=== PATIENT | male | born 1965 | race Caucasian/White ===

== ENCOUNTER → 2020-06-11 15:04 | Outpatient (BNVA) | payer BC, SELFPAY | PROVIDERS: Family Provider Nurse Practitioner Family; PCP Nurse Practitioner Family; Visit Provider Emergency Medicine | DX: Z11.59 Encounter for screening for other viral diseases (principal) | CPT/HCPCS: 87635 ==

== ENCOUNTER → 2021-07-18 13:25 | Outpatient (BNVA) | payer OTHER, SELFPAY | PROVIDERS: Family Provider Nurse Practitioner Family; PCP Nurse Practitioner Family; Visit Provider Nurse Practitioner Family | DX: I10 Essential (primary) hypertension (principal); Z12.5 Encounter for screening for malignant neoplasm of prostate; E78.2 Mixed hyperlipidemia | CPT/HCPCS: 80053; 80061; 84153; 84443; 85025 ==

== ENCOUNTER → 2021-07-26 09:26 | Outpatient (BNVA) | payer OTHER, SELFPAY | PROVIDERS: Family Provider Nurse Practitioner Family; PCP Nurse Practitioner Family; Visit Provider Nurse Practitioner Family | DX: R74.8 Abnormal levels of other serum enzymes (principal) | CPT/HCPCS: 82977; 86705; 86706; 86709; 86803; 87340 ==

== ENCOUNTER 2021-11-14 09:11 | Outpatient (CLI) | payer OTHER, SELFPAY ==
--- NOTE | 2021-11-14 | XR_ITS ---
WS: [id number] PROCEDURE: XR chest 2V* [id number] CLINICAL INFORMATION: BONE SCAN COMPARISON COMPARISON: None. FINDINGS: Heart: Normal cardiac silhouette. Lungs: Lungs are clear. No consolidation or pleural fluid. A few incidental calcified granulomas. Bones: Normal visualized bony structures. XR/XR chest 2V* [id number] IMPRESSION: 1. No acute pulmonary infiltrates. A few calcified granulomas. 2. Normal cardiac silhouette. 3. No definite findings in the sternum to correspond to the bone scan findings although sternum not well evaluated on this examination. Recommend further renan luation with CT sternum
--- NOTE | 2021-11-14 | XR_ITS ---
WS: [id number] HIP WITH PELVIS RIGHT TECHNIQUE: 3 views of the right hip with pelvis CLINICAL INFORMATION: BONE SCAN COMPARISON COMPARISON: None. FINDINGS: Sclerotic focus in the LEFT iliac wing measuring 1.6 cm. Diffuse coarse trabeculation involving upper and mid sacrum with some sclerosis corresponding to the bone scan findings. Tiny sclerotic focus RIG HT proximal femur measuring 6 mm. XR/XR hip RT 2-3V wo/w pel* [id number] IMPRESSION: 1. Sclerotic focus in the LEFT iliac wing measuring 1.6 cm nonspecific but alvarado picious for metastatic disease given bone scan findings. 2. Small focus of nonspecific sclerosis RIGHT proximal femur measuring 6 mm. 3. Diffuse trabeculation and sclerosis involving the RIGHT greater than LEFT s acrum corresponding to bone scan. Findings suspicious for metastatic disease. R ecommend further evaluation of above findings with CT and/or MRI. Tonnis classification:
--- NOTE | 2021-11-14 09:22 | NM_ITS ---
WS: [id number] NUCLEAR MEDICINE BONE SCAN Radiopharmaceutical: 24.1 Tc-99m MDP mCi IV Injection site: RIGHT antecubital Postinjection imaging delay: 1 hr CLINICAL INFORMATION: R74.8 - Abnormal levels of other serum enzymes COMPARISON: None. FINDINGS: Bone lesions: Intense focal uptake in the sternum with additional diffuse intense uptake involving th e upper and mid sacrum. Findings are nonspecific but suspicious for metastatic disease. Additional mo re low-grade uptake in the RIGHT hip and greater trochanter. Soft tissue contours: Normal. Kidneys: Normal. Other findings: Degenerative type uptake involving the AC joints and sternoclavicular joints. Degener ative type uptake involving both knees NM/NM bone scan whole body* [id number] IMPRESSION: 1. Intense uptake involving the sternum with a large area of intense bony upta ke involving the upper and mid sacrum nonspecific but suspicious for metastatic disease. Sternotomy. The further evaluated with CT. Sacrum can be further eval uated with CT or MRI. 2. Additional abnormal uptake involving the RIGHT femur and greater trochanter . This also could be further evaluated with CT or MRI. 3. Degenerative type uptake in the AC joints, sternoclavicular joints, dorsal spine, and both knees.
== END 2021-11-14 09:12 | disposition home or self-care (01) ==
PROVIDERS: Family Provider Nurse Practitioner Family; PCP Nurse Practitioner Family; Visit Provider Nurse Practitioner Family
DX: R74.8 Abnormal levels of other serum enzymes (principal)
CPT/HCPCS: 71046; 73502; 78306; A9561

== ENCOUNTER 2021-11-24 10:35 | Outpatient (CLI) | payer OTHER, SELFPAY ==
--- NOTE | 2021-11-24 12:00 | CT_ITS ---
WS: [email or web address] CT abdomen pelvis w con* [id number] REASON FOR EXAM: M89.9 - Disorder of bone, unspecified IV CONTRAST ADMINISTERED: 95 mL of Omnipaque 300. TOTAL EXAM DLP: 2014.[address] scans at [facility] use at least one of these dose optimization techniques: automat ed exposure control; mA and/or kV adjustment per patient size (includes targeted exams where dose is matched to clinical indication); or iterative reconstruction. FINDINGS: Liver, spleen, pancreas, and gallbladder are unremarkable. The adrenal glands are within normal limits. Sub-3 mm cysts in both kidneys with a sub-3 mm calculus in the left kidney. No abdominal mass or adenopathy. No focal fluid collection or free fluid. Mild degenerative changes in the lumbar spine without focal lesion. PELVIS: No mass or adenopathy. No free fluid or focal fluid collection. Bone islands in the left iliac wing and both proximal femurs. 11 mm lucency with sclerotic margin med ial left iliac wing. These findings are all benign and clinically insignificant. There is mixed lytic and sclerotic change within the sacrum. This would appear to represent Paget's d isease. CT/CT abdomen pelvis w con* [id number] IMPRESSION: No liver or other significant abdominal abnormality. 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
[2021-11-24] MEDS: iohexol 300 mg/mL 100 mL Btl IV (12:35)
[2021-11-24] MEDS: iohexol 300 mg/mL 50 mL Btl PO (12:35)
== END 2021-11-24 10:36 | disposition home or self-care (01) ==
LOC: RAD 10:35
PROVIDERS: PCP Nurse Practitioner Family; Visit Provider Nurse Practitioner Family
DX: M89.9 Disorder of bone, unspecified (principal); R74.8 Abnormal levels of other serum enzymes; R93.7 Abnormal findings on diagnostic imaging of other parts of musculoskeletal system
CPT/HCPCS: 74177

== ENCOUNTER 2021-12-02 07:59 | Outpatient (CLI) | payer OTHER, SELFPAY ==
--- NOTE | 2021-12-02 08:11 | CT_ITS ---
WS: [email or web address] CT scan of the chest with IV contrast, additional two-dimensional coronal and sagittal reconstruction was performed. 12/02/2021 Clinical Data: M89.9 - Disorder of bone, unspecified Comparison: PA and lateral chest, 11/14/2021, bone scan, 11/14/2021. DLP: 1838.27 mGy-cm All CT scans at [facility] use at least one of these dose optimization techniques: automated e xposure control; mA and/or kV adjustment per patient size (includes targeted exams where dose is matc hed to clinical indication); or iterative reconstruction. Findings: The body of the sternum shows thickening of the cortex with no cortical destruction. The increased de nsity of the sternum is consistent throughout the entire body. The appearance of this change is not t ypical of metastatic disease but more consistent with Paget's disease localized to the body of the st ernum. No nodules, masses or effusions are seen. The heart size is normal with no pericardial effusion. The trachea bifurcates normally into the bronchi. The pulmonary arterial system and thoracic aorta demons trate no abnormalities or dilatations. There is no axillary or significant mediastinal adenopathy. The upper abdomen shows no acute changes. CT/CT chest w con* [id number] Impression: 1. Increased density of the body of the sternum more consistent with Paget's di sease of the bone rather than metastatic disease. 2. Negative for acute cardiopulmonary disease.
--- NOTE | 2021-12-02 08:30 | CT_ITS ---
WS: [email or web address] CT scan of the right thigh and femur. Additional two-dimensional coronal and sagittal reconstruction was performed. MIP images were also performed. 12/02/2021 Clinical Data: M89.9 - Disorder of bone, unspecified Comparison: CT abdomen pelvis, 11/24/2021, bone scan, 11/14/2021. DLP: 1838.7 mGy-cm All CT scans at [facility] use at least one of these dose optimization techniques: automated e xposure control; mA and/or kV adjustment per patient size (includes targeted exams where dose is matc hed to clinical indication); or iterative reconstruction. Findings: The right thigh including the femur demonstrated no significant abnormalities. There was a bone islan d in the intertrochanteric region of the right femur. No metastatic lesions were seen. There were no fractures. There is no bone destruction or erosion. The right hip and right knee appear to be normal. The soft tissues are unremarkable. CT/CT femur RT w con [id number] Impression: Negative CT scan of the right thigh and femur.
[2021-12-02] MEDS: iohexol 300 mg/mL 100 mL Btl IV ×2 (08:49→08:50)
== END 2021-12-02 08:00 | disposition home or self-care (01) ==
LOC: RAD 08:03
PROVIDERS: PCP Nurse Practitioner Family; Visit Provider Nurse Practitioner Family
DX: M89.9 Disorder of bone, unspecified (principal); R74.8 Abnormal levels of other serum enzymes; R93.89 Abnormal findings on diagnostic imaging of other specified body structures; R93.6 Abnormal findings on diagnostic imaging of limbs
CPT/HCPCS: 71260; 73701

== ENCOUNTER → 2021-12-07 14:40 | Outpatient (BNVA) | payer OTHER, SELFPAY | PROVIDERS: PCP Nurse Practitioner Family; Visit Provider Nurse Practitioner Family | DX: M88.9 Osteitis deformans of unspecified bone (principal) | CPT/HCPCS: 82306 ==

== ENCOUNTER → 2022-03-20 09:29 | Outpatient (BNVA) | payer OTHER, SELFPAY | PROVIDERS: PCP Nurse Practitioner Family; Visit Provider Nurse Practitioner Family | DX: E78.2 Mixed hyperlipidemia (principal); I10 Essential (primary) hypertension | CPT/HCPCS: 80053; 80061; 82306; 85025 ==